=== PATIENT | female | born 1990 ===

== ENCOUNTER 2025-03-13 10:36 | Outpatient (CLI) | payer BC, SELFPAY ==
[2025-03-14 15:43] LABS: HPV Source Cervical/Vag; HPV, High Risk by TMA Not Detected
== END 2025-03-13 10:37 | disposition home or self-care (01) ==
PROVIDERS: Visit Provider Physician Assistant Medical
DX: Z00.01 Encounter for general adult medical examination with abnormal findings (principal); E55.9 Vitamin D deficiency, unspecified; Z13.228 Encounter for screening for other metabolic disorders; Z13.6 Encounter for screening for cardiovascular disorders; Z13.29 Encounter for screening for other suspected endocrine disorder; Z11.51 Encounter for screening for human papillomavirus (HPV); Z12.4 Encounter for screening for malignant neoplasm of cervix
CPT/HCPCS: 80053; 80061; 82306; 84443; 87624; 87625; 88141; 88142